=== PATIENT | male | born 1965 | race Caucasian/White ===

== ENCOUNTER 2017-06-25 15:17 | Emergency (ER) | payer SELFPAY ==
[2017-06-25] MEDS ORDERED: SUCRALFATE 1 GM TABLET (FP) PO ONE (15:42)
[2017-06-25] MEDS ORDERED: MAG HYDROX/AL HYDROX/SIMETH 30 ML UNIT-DOSE CUP PO ONE (15:43)
[2017-06-25] MEDS ORDERED: FAMOTIDINE 20 MG/50 ML IVPB 50 ML IVPB ONE ×2 (15:43→16:10)
[2017-06-25] MEDS ORDERED: ONDANSETRON 4 MG/2 ML VIAL IVPUSH ONE (15:43)
[2017-06-25 15:45] VITALS: BMI 227.5
--- NOTE | 2017-06-25 15:49 | PDOC ---
History of Present Illness - General History Source: Patient, Family - History of Present Illness Timing/Duration: reports: getting worse Quality: reports: burning Abdominal Pain Onset Location: reports: epigastric <Gail Archer - Last Filed: 06/26/17 07:10> <Reny Martinez - Last Filed: 06/26/17 17:31> - General Chief Complaint: Pain, Acute Stated Complaint: ABD PAIN Time Seen by Provider: 06/25/17 15:35 Past History - Psycho/Social/Smoking Cessation Hx Suicidal Ideation: No Smoking History: Current every day smoker Number of Cigarettes Smoked Daily: 6 Information on smoking cessation initiated: No Hx Alcohol Use: No Drug/Substance Use Hx: No <Gail Archer - Last Filed: 06/26/17 07:10> <Reny Martinez - Last Filed: 06/26/17 17:31> - Past Medical History Allergies/Adverse Reactions: Allergies Allergy/AdvReac Type Severity Reaction Status Date / Time No Known Allergies Allergy Verified 06/25/17 15:43 Home Medications: Ambulatory Orders Famotidine [Pepcid] 20 mg PO DAILY #14 tablet 06/25/17 Sucralfate [Carafate -] 1 gm PO Q6H #56 tablet 06/25/17 Review of Systems - Review of Systems Constitutional: No: Chills, Fever, Unexplained wgt Loss Respiratory: No: Cough, Shortness of Breath Cardiac (ROS): No: Chest Pain ABD/GI: Yes: Nausea, Vomiting, Abdominal cramping. No: Blood Streaked Bowels, Diarrhea, Rectal Bleeding, Tarry Stools : No: Dysuria, Hematuria <Gail Archer - Last Filed: 06/26/17 07:10> *Physical Exam - Vital Signs Last Vital Signs Temp Pulse Resp BP Pulse Ox 98.2 F 60 18 111/76 100 06/25/17 15:43 06/25/17 15:43 06/25/17 15:43 06/25/17 15:43 06/25/17 15:43 - Physical Exam General Appearance: Yes: Appropriately Dressed, Mild Distress HEENT: positive: Normal Voice Neck: positive: Supple Respiratory/Chest: positive: Lungs Clear, Normal Breath Sounds. negative: Respiratory Distress Cardiovascular: positive: Regular Rate, S1, S2 Gastrointestinal/Abdominal: positive: Normal Bowel Sounds, Tender (to eoigastrium, no ttp to RUQ), Soft. negative: Distended, Guarding, Rebound, Mass Musculoskeletal: negative: CVA Tenderness Extremity: positive: Normal Inspection Integumentary: positive: Dry, Warm Neurologic: positive: Fully Oriented, Alert, Normal Mood/Affect <MacaneseGail - Last Filed: 06/26/17 07:10> - Vital Signs Last Vital Signs Temp Pulse Resp BP Pulse Ox 97.9 F 64 17 108/65 98 06/25/17 19:12 06/25/17 19:12 06/25/17 19:12 06/25/17 19:12 06/25/17 19:12 <Reny Martinez - Last Filed: 06/26/17 17:31> Heart Score/ECG Review - ECG Intrepretation Comment:: 06/25/17 16:42 Twelve-lead EKG was performed and reviewed by me. There is normal sinus rhythm with a normal rate. The axis is normal. The intervals are normal. There are no ST or T wave abnormalities. Impression: Normal twelve-lead EKG 06/25/17 16:42 <Gail Archer - Last Filed: 06/26/17 07:10> ED Treatment Course - LABORATORY CBC & Chemistry Diagram: 06/25/17 16:04 06/25/17 17:55 <MacaneseGail - Last Filed: 06/26/17 07:10> - LABORATORY CBC & Chemistry Diagram: 06/25/17 16:04 06/25/17 17:55 - ADDITIONAL ORDERS Additional order review: 06/25/17 16:04 RBC 4.48 MCV 92.8 MCHC 33.6 RDW 13.6 MPV 7.9 Neutrophils % 60.3 Lymphocytes % 28.3 Monocytes % 8.2 Eosinophils % 2.7 Basophils % 0.5 - Medications Given in the ED: ED Medications Discontinued Medications Generic Name Dose Route Start Last Admin Trade Name Freq PRN Reason Stop Dose Admin Al Hydroxide/Mg Hydroxide 30 ml 06/25/17 15:43 06/25/17 16:00 Mylanta Oral Suspension - PO 06/25/17 15:44 30 ml ONCE ONE Administration Famotidine/Sodium Chloride 50 mls @ 100 mls/hr 06/25/17 15:43 06/25/17 16:00 Pepcid 20 Mg Premixed Ivpb - IVPB 06/25/17 16:12 100 mls/hr ONCE ONE Administration Ondansetron HCl 4 mg 06/25/17 15:43 06/25/17 16:00 Zofran Injection IVPUSH 06/25/17 15:44 4 mg ONCE ONE Administration Sucralfate 1 gm 06/25/17 15:42 06/25/17 16:00 Carafate - PO 06/25/17 15:43 1 gm ONCE ONE Administration <Reny Martinez - Last Filed: 06/26/17 17:31> Medical Decision Making - Medical Decision Making 06/25/17 15:45 52-year-old male, history of insulin-dependent diabetes, hyperlipidemia, here with abd pain. Patient reports epigastric pain 1 month, burning in nature, intermittent and appears to improve with food. States pain worsened last night and had one episode of nausea and vomiting. No diarrhea, constipation, melena, hematochezia or hematemesis. Denies fever or chills. No unexplained weight loss See exam Epigastric pain Possibly duodenal ulcer (given improvement w/ food) vs gastritis/GERD vs gallstones/lisa, less likely cardiac -GI cocktail -labs -ekg -?US -reassess 06/25/17 18:59 Patient reports feeling significantly better and was able to tolerate by mouth in ED. CBC wnl. Signed out to SHAWNA Marshall pending chemistry w/ discharge w/ GI f/u if labs normal <Gail Archer - Last Filed: 06/26/17 07:10> *DC/Admit/Observation/Transfer <Gail Archer Last Filed: 06/26/17 07:10> - Attestations Physician Attestion: I reviewed the case with the mid-level practitioner and agree with the mid- level practitioner's assessment, diagnosis and disposition. <Reny Martinez - Last Filed: 06/26/17 17:31> Diagnosis at time of Disposition: Gastric pain - Discharge Dispostion Condition at time of disposition: Improved - Prescriptions Prescriptions: Sucralfate [Carafate -] 1 gm PO Q6H #56 tablet Famotidine [Pepcid] 20 mg PO DAILY #14 tablet - Referrals Referrals: Marc Diaz MD [Staff Physician] - - Patient Instructions Printed Discharge Instructions: Gastric Ulcer Additional Instructions: Take medications as prescribed and follow-up with Dr. Saunders of GI. If symptoms worsen and you notice black or bloody stool, return to ER immediately Print Language: SAO TOMEAN
--- NOTE | 2017-06-25 16:02 | PDOC ---
History of Present Illness - General Stated Complaint: ABD PAIN Time Seen by Provider: 06/25/17 15:35 - History of Present Illness Initial Comments: 06/25/17 15:37 The patient is a year old female, with a significant past medical history of, who presents to the emergency department with The patient denies chest pain, shortness of breath, headache and dizziness. Denies fever, chills, nausea, vomit, diarrhea and constipation. Denies dysuria, frequency, urgency and hematuria. Allergies: Past surgical history: Social history: PMD - Past History - Past Medical History Allergies/Adverse Reactions: Allergies Allergy/AdvReac Type Severity Reaction Status Date / Time No Known Allergies Allergy Verified 06/25/17 15:43 Home Medications: Ambulatory Orders Famotidine [Pepcid] 20 mg PO DAILY #14 tablet 06/25/17 Sucralfate [Carafate -] 1 gm PO Q6H #56 tablet 06/25/17 Review of Systems - Review of Systems Comments:: 06/25/17 15:37 GENERAL/CONSTITUTIONAL: No fever or chills. No weakness. HEAD, EYES, EARS, NOSE AND THROAT: No change in vision. No ear pain or discharge. No sore throat. CARDIOVASCULAR: No chest pain or shortness of breath RESPIRATORY: No cough, wheezing, or hemoptysis. GASTROINTESTINAL: No nausea, vomiting, diarrhea or constipation. GENITOURINARY: No dysuria, frequency, or change in urination. MUSCULOSKELETAL: No joint or muscle swelling or pain. No neck or back pain. SKIN: No rash NEUROLOGIC: No headache, vertigo, loss of consciousness, or change in strength/ sensation. ENDOCRINE: No increased thirst. No abnormal weight change HEMATOLOGIC/LYMPHATIC: No anemia, easy bleeding, or history of blood clots. ALLERGIC/IMMUNOLOGIC: No hives or skin allergy. *Physical Exam - Physical Exam Comments: 06/25/17 15:37 GENERAL: Awake, alert, and fully oriented, in no acute distress HEAD: No signs of trauma, normocephalic, atraumatic EYES: PERRLA, EOMI, sclera anicteric, conjunctiva clear ENT: Auricles normal inspection, hearing grossly normal, nares patent, oropharynx clear without exudates. Moist mucosa NECK: Normal ROM, supple, no lymphadenopathy, JVD, or masses LUNGS: No distress, speaks full sentences, clear to auscultation bilaterally HEART: Regular rate and rhythm, normal S1 and S2, no murmurs, rubs or gallops, peripheral pulses normal and equal bilaterally. ABDOMEN: Soft, nontender, normoactive bowel sounds. No guarding, no rebound. No masses EXTREMITIES: Normal inspection, Normal range of motion, no edema. No clubbing or cyanosis. NEUROLOGICAL: Cranial nerves II through XII grossly intact. Normal speech, normal gait, no focal sensorimotor deficits SKIN: Warm, Dry, normal turgor, no rashes or lesions noted. ED Treatment Course - LABORATORY CBC & Chemistry Diagram: 06/25/17 16:04 06/25/17 16:04 *DC/Admit/Observation/Transfer Diagnosis at time of Disposition: Gastric pain - Discharge Dispostion Condition at time of disposition: Improved - Prescriptions Prescriptions: Sucralfate [Carafate -] 1 gm PO Q6H #56 tablet Famotidine [Pepcid] 20 mg PO DAILY #14 tablet - Referrals Referrals: Marc Diaz MD [Staff Physician] - - Patient Instructions Printed Discharge Instructions: Gastric Ulcer Additional Instructions: Take medications as prescribed and follow-up with Dr. Saunders of GI. If symptoms worsen and you notice black or bloody stool, return to ER immediately Print Language: INDONESIAN - Attestations Physician Attestion: 06/25/17 19:01 I, Dr. Eriberto Cummings, attest that this document has been prepared under my direction and personally reviewed by me in its entirety. I further attest, that it accurately reflects all work, treatment, procedures and medical decision -making performed by me.
[2017-06-25] MEDS ORDERED: ONDANSETRON 4 MG/2 ML VIAL ONE (16:10)
[2017-06-25] MEDS ORDERED: SUCRALFATE 1 GM TABLET (FP) ONE (16:10)
[2017-06-25] MEDS ORDERED: MAG HYDROX/AL HYDROX/SIMETH 30 ML UNIT-DOSE CUP ONE (16:10)
[2017-06-25 16:33] LABS: BASOPHIL 0.5 % (0-2.0); EOSINOPHIL 2.7 % (0-4.5); MCH 31.1 pg (25.7-33.7); MCHC 33.6 g/dl (32.0-35.9); MEAN CELL VOLUME 92.8 fl (80-96); MEAN PLT VOLUME 7.9 fl (7.5-11.1); NEUTROPHILS 60.3 % (42.8-82.8); PLATELET COUNT 258 K/MM3 (134-434); RDW 13.6 % (11.9-15.9); WHITE BLOOD COUNT 9.6 K/mm3 (4.0-10.0)
[2017-06-25 19:13] VITALS: BP 108/65; PULSE 64; TEMP 97.9
[2017-06-25 19:55] LABS: ALBUMIN 3.7 g/dl (3.4-5.0); ANION GAP 6 (8-16); CALCIUM 9.1 mg/dL (8.5-10.1); CO2 31 mmol/L (21-32); CREATININE 0.7 mg/dL (0.7-1.3); GLUCOSE,RANDOM 83 mg/dL (74-106); SGOT/AST 5 U/L (15-37); SGPT/ALT 17 U/L (12-78)
[2017-06-25 19:57] LABS: ALK PHOS 109 U/L (45-117); BILIRUBIN,TOTAL 0.5 mg/dL (0.2-1.0); TOT PROT 6.6 g/dl (6.4-8.2)
--- NOTE | 2017-06-26 13:29 | EKG ---
Test Reason : Blood Pressure : / mmHG Vent. Rate : 061 BPM Atrial Rate : 061 BPM P-R Int : 154 ms QRS Dur : 094 ms QT Int : 396 ms P-R-T Axes : 034 011 019 degrees QTc Int : 398 ms NORMAL SINUS RHYTHM NORMAL ECG NO PREVIOUS ECGS AVAILABLE Confirmed by ELISSA CAST MD ([id number]) on 06/26/2017 1:29:02 PM Referred By: Confirmed By:ELISSA CAST MD
== END 2017-06-25 20:22 ==
LOC: JER 15:17
CPT/HCPCS: 36415; 80053; 85025; 93005; 93010; 99282-25

== ENCOUNTER 2022-12-04 09:19 | Emergency (ER) | payer OTHER ==
[2022-12-04 09:36] VITALS: BP 147/80; PULSE 80; RESP 18; TEMP 97.1; BMI 31.3
[2022-12-04] MEDS ORDERED: ACETAMINOPHEN 500 MG TABLET (FP) PO ONE (09:57)
[2022-12-04] MEDS ORDERED: LIDOCAINE 5% TOPICAL PATCH TP ONE ×2 (09:58→10:02)
[2022-12-04] MEDS ORDERED: IBUPROFEN 600 MG TABLET (FP) PO ONE ×2 (10:02→10:26)
[2022-12-04] MEDS ORDERED: LIDOCAINE 5% TOPICAL PATCH ONE (10:27)
[2022-12-04] MEDS ORDERED: ACETAMINOPHEN 325 MG TABLET (FP) ONE (10:27)
[2022-12-04] MEDS ORDERED: LIDOCAINE PATCH REMOVAL MC SCH ×2 (22:00)
== END 2022-12-04 11:05 | disposition home or self-care (01) ==
LOC: JER 09:19
DX: M54.2 Cervicalgia (principal); V49.40XA Driver injured in collision with unspecified motor vehicles in traffic accident, initial encounter
CPT/HCPCS: 99283-25